=== PATIENT | female | born 1965 | race Caucasian/White ===

== ENCOUNTER 2016-11-14 12:28 | Day surgery (SDC) | payer BC ==
[2016-11-14] MEDS ORDERED: IV START KIT ONE (12:40)
[2016-11-14] MEDS ORDERED: LACTATED RINGERS 1,000 ML ONE ×2 (12:40→14:01)
[2016-11-14] MEDS ORDERED: FENTANYL 250 MCG/5 ML AMP ONE (13:48)
[2016-11-14] MEDS ORDERED: PROPOFOL 20 ML IV ONE ×2 (13:48→14:24)
[2016-11-14] MEDS ORDERED: LACTATED RINGERS 1,000 ML IV SCH (14:30)
== END 2016-11-14 14:51 | disposition home or self-care (01) ==
LOC: SDC 12:28
PROVIDERS: ATTEND Surgery
PROC: 0DJD8ZZ Inspection of Lower Intestinal Tract, Via Natural or Artificial Opening Endoscopic (ICD-10-PCS; principal; 2016-11-14)
DX: Z12.11 Encounter for screening for malignant neoplasm of colon (principal); Z83.71 Family history of colonic polyps; J45.909 Unspecified asthma, uncomplicated; D64.9 Anemia, unspecified; R01.1 Cardiac murmur, unspecified; B00.9 Herpesviral infection, unspecified
CPT/HCPCS: 45378; J3010; J7120 ×2